=== PATIENT | female | born 1945 | race Caucasian/White ===

== ENCOUNTER 2021-01-30 20:00 | Emergency (ER) | payer OTHER ==
[~2021-01-30] VITALS: Ht 154.9 cm; Wt 54.4 kg
[2021-01-30] MEDS ORDERED: SYNTHROID75 MCG (20:31)
[2021-01-30] MEDS ORDERED: CIPRO500 MG PO (23:10)
[2021-01-30] MEDS ORDERED: PEPCID AC20 MG PO ×2 (23:11)
== END 2021-01-30 23:54 | disposition home or self-care (01) ==
LOC: ER 20:00
DX: K29.70 Gastritis, unspecified, without bleeding (principal); N39.0 Urinary tract infection, site not specified

== ENCOUNTER 2021-03-23 17:32 | Inpatient (IN) | payer OTHER ==
[~2021-03-23] VITALS: Ht 149.9 cm; Wt 50.8 kg
[~2021-03-23 17:32] MED LIST: CIPRO500 MG PO; PEPCID AC20 MG PO; SYNTHROID75 MCG
[2021-03-23] MEDS ORDERED: SYNTHROID50 MCG PO (17:49)
[2021-03-23] MEDS ORDERED: CARBIDOPA-LEVO1 EAC3 PO (17:49)
[2021-03-23] MEDS ORDERED: CARAFATE1 GM/10 ML PO (17:50)
[2021-03-25] MEDS ORDERED: RASAGILINE MESYL1 MG PO (08:21)
[2021-03-25] MEDS ORDERED: INTESTINEX680 M1 PO (08:21)
[2021-03-25] MEDS ORDERED: HYDROXYZINE PAM25 MG (08:21)
[2021-03-25] MEDS ORDERED: ABANEU-SL TABL1 EACH (08:22)
[2021-03-25] MEDS ORDERED: CANDESARTAN-HC1 EACH (08:22)
[2021-03-25] MEDS ORDERED: AMLODIPINE BESYL5 MG (08:22)
[2021-03-25] MEDS ORDERED: ROSUVASTATIN CAL5 MG (08:22)
[2021-03-25] MEDS ORDERED: METOCLOPRAMIDE H5 MG (08:22)
[2021-03-25] MEDS ORDERED: PANTOPRAZOLE SO40 MG (08:22)
[2021-03-25] MEDS ORDERED: OPTIMAL D31250 MCG (08:22)
[2021-03-27] MEDS ORDERED: AMLODIPINE BESY10 MG PO (07:39)
[2021-03-27] MEDS ORDERED: QUETIAPINE FUMA25 MG PO (07:41)
[2021-03-27] MEDS ORDERED: FAMOTIDINE20 MG PO (07:41)
[2021-03-27] MEDS ORDERED: INTESTINEX680 M1 PO (07:42)
[2021-03-27] MEDS ORDERED: CARBIDOPA-LEVO1 EAC3 PO (07:43)
[2021-03-27] MEDS ORDERED: POLY119PG PO (07:43)
[2021-03-27] MEDS ORDERED: TIGAN100 MG/M2 PO (07:44)
== END 2021-03-27 12:45 | disposition home or self-care (01) | DRG 690 ==
LOC: ER → SURH 19:40
PROVIDERS: ADMIT Internal Medicine; ATTEND Internal Medicine
PROC: BW21YZZ Computerized Tomography (CT Scan) of Abdomen and Pelvis using Other Contrast (ICD-10-PCS; principal; 2021-03-23)
DX: N39.0 Urinary tract infection, site not specified (principal); R44.2 Other hallucinations; G20 Parkinson's disease; K29.60 Other gastritis without bleeding; K57.30 Diverticulosis of large intestine without perforation or abscess without bleeding; K21.9 Gastro-esophageal reflux disease without esophagitis; R13.19 Other dysphagia; F02.80 Dementia in other diseases classified elsewhere, unspecified severity, without behavioral disturbance, psychotic disturbance, mood disturbance, and anxiety; I10 Essential (primary) hypertension; E03.8 Other specified hypothyroidism; Z20.822 Contact with and (suspected) exposure to COVID-19